=== PATIENT | male | born 1950 | race Caucasian/White ===

== ENCOUNTER 2017-07-08 12:11 | Emergency (ER) | payer OTHER, BC ==
[~2017-07-08] VITALS: Ht 157.5 cm; Wt 70.5 kg
[~2017-07-08 12:11] MED LIST: ASPI81TA28 PO; ATEN-173 PO; TAMS0.4C38 PO
[2017-07-08 12:24] VITALS: TEMP 37; Ht 157.5 cm; Wt 70.5 kg
[2017-07-08] MEDS ORDERED: PRAV10TA39 PO (12:34)
[2017-07-08] MEDS ORDERED: CRG125 PO (12:34)
[2017-07-08] MEDS ORDERED: KETOROLAC TROMETHAMINE 30 MG/ML VIAL IV STA (12:43)
[2017-07-08] MEDS ORDERED: ONDANSETRON INJ 2 MG/ML 2 ML VIAL IV STA (12:43)
--- NOTE | 2017-07-08 12:52 | EMERGENCY ROOM VISIT NOTE ---
History Report prepared by Adrienne: Zahra Hilliard Under the Supervision of: Dr. Jorden Lance M.D. First contact with patient: 12:41 Chief Complaint: KIDNEY STONE Stated Complaint: KIDNEY STONES History of Present Illness The patient is a 66 year old male who presents to the Emergency Room with complaints of a kidney stone. He states that his symptoms began three and a half hours ago. The patient rates the pain at a 9/10. He reports having a pain in his right back which radiated to his right testicle. He also reports having nausea, sweating, and the chills. The patient reports a history of kidney stones and states that his symptoms today feel similar. He states that he had a 5 mm stone and had to have a lithotripsy to pass it. Source of History: patient Onset: three and a half hours ago Position: other (kidney) Symptom Intensity: rated at a 9/10 Quality: other (stone) Associated Symptoms: + chills, + diaphoresis, + nausea, + back pain (right) Note: additional symptom: pain in right testicle Review of Systems See HPI for pertinent positives & negatives. A total of 10 systems reviewed and were otherwise negative. Past Medical & Surgical Medical Problems: (1) Heart disease (2) Hypertension Family History Cancer FH: HTN (hypertension) Hypertension Kidney disease Social History Smoking Status: Never Smoker Marital Status: Housing Status: lives with significant other Current/Historical Medications Scheduled Aspirin (Aspirin Ec), 81 MG PO QAM Carvedilol (Carvedilol), 12.5 MG PO BID Pravastatin Sodium (Pravastatin Sodium), 10 MG PO QPM Tamsulosin Hcl (Flomax), 0.4 MG PO DAILY Scheduled PRN Oxycodone Ir (Roxicodone Ir), 1-2 TAB PO Q4H PRN for Pain Allergies Coded Allergies: Penicillins (Verified Allergy, Unknown, RASH, 07/08/17) Physical Exam Vital Signs Date Time Temp Pulse Resp B/P (MAP) Pulse Ox O2 Delivery O2 Flow Rate FiO2 07/08/17 14:52 87 16 128/66 99 07/08/17 13:51 83 17 130/80 96 Room Air 07/08/17 12:24 37.0 83 20 152/92 96 Room Air Physical Exam GENERAL: Patient is in no acute distress. HEENT: No acute trauma, normocephalic atraumatic, mucous membranes moist, no nasal congestion, no scleral icterus. NECK: No stridor, no adenopathy, no meningismus, trachea is midline. LUNGS: Clear to auscultation bilaterally, no wheeze, no rhonchi, breath sounds equal. HEART: Without murmurs gallops or rubs, regular rate and rhythm. ABDOMEN: Soft, nontender, bowel sounds positive, no hernias, no peritonitis. EXTREMITIES: No cyanosis or edema, full range of motion of all the joints without pain or difficulty, no signs for acute trauma. NEUROLOGIC: Oriented x 3, no acute motor or sensory deficits, no focal weakness. BACK: No flank discomfort with percussion. SKIN: No rash, no jaundice, no diaphoresis. Medical Decision & Procedures ER Provider Diagnostic Interpretation: Radiology results as stated below per my review and radiologist interpretation: CT SCAN OF THE ABDOMEN AND PELVIS WITHOUT CONTRAST CLINICAL HISTORY: Right-sided flank pain and hematuria COMPARISON STUDY: No previous studies for comparison. TECHNIQUE: CT scan of the abdomen and pelvis was performed from the lung bases to the proximal femurs. Images are reviewed in the axial, sagittal, and coronal planes. IV contrast was not administered for this examination. A dose lowering technique was utilized adhering to the principles of ALARA. CT DOSE: 669.91 mGy.cm FINDINGS: Lower chest: There are lingular airspace opacities, suspicious for a pneumonitis. There are basilar atelectatic changes. Liver: The unenhanced liver is normal in size, contour, and attenuation. There is no intrahepatic biliary ductal dilatation. Gallbladder: Unremarkable. Spleen: The spleen is of normal in size. There are 2 tiny too small to characterize hypodensities. Pancreas: Unremarkable. Adrenal glands: Unremarkable. Kidneys: There is bilateral perinephric stranding right greater than left. There is a 5 mm hyperdense focus within the upper pole of the right kidney. It is unclear whether this represents a faintly opaque calculus or cortical calcification area There is a 4 mm proximal right ureteral calculus. No bladder calculi are visualized. No left ureteral calculi are visualized. Bowel: There are no transition zones indicate bowel obstruction. There is no evidence of acute appendicitis. There is no evidence of acute diverticulitis. Peritoneum: There is no intraperitoneal free air or abdominal ascites. There are bilateral fat-containing inguinal hernias. Vasculature: The abdominal aorta is normal in course and caliber. Adenopathy: None. Pelvic viscera: The bladder, and pelvic viscera are unremarkable. Skeletal structures: No destructive osseous lesions are seen. IMPRESSION: 1. 4 mm proximal right ureteral calculus with mild secondary obstructive changes 2. No evidence of bowel obstruction. No evidence of free air. Electronically signed by: Wilman Win M.D. 07/08/2017 1:53 PM Dictated Date/Time: 07/08/2017 1:48 PM Laboratory Results 07/08/17 12:55 07/08/17 12:55 Test 07/08/17 12:55 07/08/17 13:00 Red Blood Count 4.56 M/uL (4.7-6.1) Mean Corpuscular Volume 93.6 fL (80-100) Mean Corpuscular Hemoglobin 32.9 pg (25-34) Mean Corpuscular Hemoglobin Concent 35.1 g/dl (32-36) RDW Standard Deviation 45.0 fL (36.4-46.3) RDW Coefficient of Variation 13.2 % (11.5-14.5) Mean Platelet Volume 10.1 fL (7.4-10.4) Anion Gap 5.0 mmol/L (3-11) Est Creatinine Clear Calc Drug Dose 50.0 ml/min Estimated GFR () 70.2 Estimated GFR (Non- 60.5 BUN/Creatinine Ratio 9.2 (10-20) Calcium Level 8.7 mg/dl (8.5-10.1) Total Bilirubin 0.7 mg/dl (0.2-1) Aspartate Amino Transf (AST/SGOT) 19 U/L (15-37) Alanine Aminotransferase (ALT/SGPT) 17 U/L (12-78) Alkaline Phosphatase 56 U/L (45-117) Total Protein 7.7 gm/dl (6.4-8.2) Albumin 3.8 gm/dl (3.4-5.0) Globulin 3.9 gm/dl (2.5-4.0) Albumin/Globulin Ratio 1.0 (0.9-2) Urine Color YELLOW Urine Appearance CLOUDY (CLEAR) Urine pH 5.0 (4.5-7.5) Urine Specific [place] 1.013 (1.000-1.030) Urine Protein NEG (NEG) Urine Glucose (UA) NEG (NEG) Urine Ketones NEG (NEG) Urine Occult Blood 3+ (NEG) Urine Nitrite NEG (NEG) Urine Bilirubin NEG (NEG) Urine Urobilinogen NEG (NEG) Urine Leukocyte Esterase NEG (NEG) Urine WBC (Auto) 1-5 /hpf (0-5) Urine RBC (Auto) 10-30 /hpf (0-4) Urine Hyaline Casts (Auto) 1-5 /lpf (0-5) Urine Epithelial Cells (Auto) 0-5 /lpf (0-5) Urine Bacteria (Auto) NEG (NEG) Laboratory results reviewed by me. Medications Administered Medications (Trade) Dose Ordered Sig/Hina Route Start Time Stop Time Status Last Admin Dose Admin Ondansetron HCl (Zofran Inj) 4 mg NOW STAT IV 07/08/17 12:43 07/08/17 12:46 DC 07/08/17 12:55 4 MG Ketorolac Tromethamine (Toradol Inj) 30 mg NOW STAT IV 07/08/17 12:43 07/08/17 12:46 DC 07/08/17 12:56 30 MG Tamsulosin HCl (Flomax Cap) 0.4 mg NOW ONCE PO 07/08/17 14:30 07/08/17 14:31 DC 07/08/17 14:52 0.4 MG ED Course 1240: The patient was evaluated in room B10. A complete history and physical exam was performed. 1243: Ordered Toradol Inj 30 mg IV, Zofran Inj 4 mg IV. 1430: Ordered Flomax Cap 0.4 mg PO, Oxycodone HCl 1 homepack PO. 1430: Reevaluated the patient. Discussed results and discharge instructions: He verbalized understanding and agreement. The patient is ready for discharge. Medical Decision The patient is a 66 year old male who presents to the ED with complaints of a kidney stone. Differential diagnoses considered include renal colic, hydronephrosis, UTI, renal failure, musculoskeletal pain, and hernia. There is no leukocytosis or concerning anemia. No significant electrolyte abnormality, kidney failure or hepatitis. Urinalysis shows hematuria consistent with a possible kidney stone. No signs of urinary infection. Abdominal and pelvis CT shows a proximal right ureteral stone with hydronephrosis. The patient received IV Toradol, IV Zofran and oral Flomax. He has been resting comfortably. I think he can be discharged to try to pass this stone naturally. He will strain all his urine, oxycodone for severe pain, Flomax to help pass the stone. He will follow with urology and return here if worsening. [place] Drug Monitoring Program Search Results: patient reviewed within database, no issues identified Medication Reconcilliation Current Medication List: was personally reviewed by me Blood Pressure Screening Patient's blood pressure: Elevated blood pressure Blood pressure disposition: Elevated BP felt to be situational Impression Primary Impression: Renal colic Scribe Attestation The scribe's documentation has been prepared under my direction and personally reviewed by me in its entirety. I confirm that the note above accurately reflects all work, treatment, procedures, and medical decision making performed by me. Departure Information Dispostion Home / Self-Care Prescriptions Oxycodone Ir (Roxicodone Ir) 5 Mg Tab 1-2 TAB PO Q4H Y for Pain, #10 TAB Prov: Jorden Lance M.D. 07/08/17 Tamsulosin Hcl (FLOMAX) 0.4 Mg Cap 0.4 MG PO DAILY, #10 CAP Prov: Jorden Lance M.D. 07/08/17 Referrals Jayesh Kirk M.D. (PCP) Magdalena Major M.D. Forms HOME CARE DOCUMENTATION FORM, IMPORTANT VISIT INFORMATION Patient Instructions My [facility] Additional Instructions fluids rest strain all the urine flomax daily to help pass the stone oxy ir 1-2 tab every 4 hours for severe pain may use motrin or advil for pain as well see urology next week return for fever, uncontrolled pain, vomiting
[2017-07-08 13:13] LABS: URINE APPEARANCE CLOUDY (CLEAR); URINE BILIRUBIN NEG (NEG); URINE COLOR YELLOW; URINE EPITHELIAL CELL AUTO 0-5 /lpf (0-5); URINE NITRITE NEG (NEG); URINE SPECIFIC GRAVITY 1.013 (1.000-1.030); UROBILINOGEN NEG (NEG); ZZUR CULT IF INDIC CLEAN CATCH NO
[2017-07-08 13:14] LABS: MANUAL MICROSCOPIC REQUIRED? NO; REVIEW REQ? NO
[2017-07-08 13:15] LABS: HEMATOCRIT 42.7 % (42-52); MEAN CELL VOLUME 93.6 fL (80-100); MEAN CORPUSCULAR HEMOGLOBIN 32.9 pg (25-34); MEAN CORPUSCULAR HGB CONC 35.1 g/dl (32-36); MEAN PLATELET VOLUME 10.1 fL (7.4-10.4); PLATELET COUNT 206 K/uL (130-400); RED BLOOD COUNT 4.56 M/uL (4.7-6.1); WHITE BLOOD COUNT 8.39 K/uL (4.8-10.8)
[2017-07-08 13:25] LABS: BUN/CREATININE RATIO 9.2 (10-20); CALCIUM 8.7 mg/dl (8.5-10.1); CREATININE 1.22 mg/dl (0.60-1.40); POTASSIUM 3.5 mmol/L (3.5-5.1)
--- NOTE | 2017-07-08 13:54 | DIAGNOSTIC IMAGING REPORT ---
CT SCAN OF THE ABDOMEN AND PELVIS WITHOUT CONTRAST CLINICAL HISTORY: Right-sided flank pain and hematuria COMPARISON STUDY: No previous studies for comparison. TECHNIQUE: CT scan of the abdomen and pelvis was performed from the lung bases to the proximal femurs. Images are reviewed in the axial, sagittal, and coronal planes. IV contrast was not administered for this examination. A dose lowering technique was utilized adhering to the principles of ALARA. CT DOSE: 669.91 mGy.cm FINDINGS: Lower chest: There are lingular airspace opacities, suspicious for a pneumonitis. There are basilar atelectatic changes. Liver: The unenhanced liver is normal in size, contour, and attenuation. There is no intrahepatic biliary ductal dilatation. Gallbladder: Unremarkable. Spleen: The spleen is of normal in size. There are 2 tiny too small to characterize hypodensities. Pancreas: Unremarkable. Adrenal glands: Unremarkable. Kidneys: There is bilateral perinephric stranding right greater than left. There is a 5 mm hyperdense focus within the upper pole of the right kidney. It is unclear whether this represents a faintly opaque calculus or cortical calcification area There is a 4 mm proximal right ureteral calculus. No bladder calculi are visualized. No left ureteral calculi are visualized. Bowel: There are no transition zones indicate bowel obstruction. There is no evidence of acute appendicitis. There is no evidence of acute diverticulitis. Peritoneum: There is no intraperitoneal free air or abdominal ascites. There are bilateral fat-containing inguinal hernias. Vasculature: The abdominal aorta is normal in course and caliber. Adenopathy: None. Pelvic viscera: The bladder, and pelvic viscera are unremarkable. Skeletal structures: No destructive osseous lesions are seen. IMPRESSION: 1. 4 mm proximal right ureteral calculus with mild secondary obstructive changes 2. No evidence of bowel obstruction. No evidence of free air. Electronically signed by: Wilman Win M.D. 07/08/2017 1:53 PM Dictated Date/Time: 07/08/2017 1:48 PM
[2017-07-08] MEDS ORDERED: OXYCODONE IR HOME PACK PO ONE (14:30)
[2017-07-08] MEDS ORDERED: TAMSULOSIN HCL 0.4 MG CAP PO ONE (14:30)
[2017-07-08] MEDS ORDERED: TAMS0.4C38 PO (14:33)
[2017-07-08] MEDS ORDERED: OXYC1TAB3 PO (14:33)
[2017-07-08 14:52] VITALS: BP 128/66; PULSE 87; O2SAT 99
[2017-07-19] MEDS ORDERED: LISI-729 PO (14:47)
== END 2017-07-08 14:59 | disposition home or self-care (01) ==
LOC: C.EDB 12:13
DX: N23 Unspecified renal colic (principal); N20.1 Calculus of ureter; N13.30 Unspecified hydronephrosis; Z87.442 Personal history of urinary calculi; Z79.82 Long term (current) use of aspirin; Z82.49 Family history of ischemic heart disease and other diseases of the circulatory system

== ENCOUNTER → 2017-07-13 | Outpatient (CLI) | payer OTHER, BC ==
[~2017-07-13] MED LIST changes: -ATEN-173 PO; +CRG125 PO; +LISI-729 PO; +OXYC-90 PO; +PRAV10TA39 PO
--- NOTE | 2017-07-13 15:35 | DIAGNOSTIC IMAGING REPORT ---
CHEST 2 VIEWS ROUTINE CLINICAL HISTORY: 66 years-old Male presenting with N20.0 [id number]. TECHNIQUE: PA and lateral views of the chest were obtained. COMPARISON: None. FINDINGS: Median sternotomy wires and mediastinal surgical clips noted. Atherosclerosis of aortic arch. Cardiac silhouette mildly enlarged. Bandlike opacity in the left midlung, which may be centered at the hilum. No pleural effusion or pneumothorax. Osseous structures normal. Upper abdomen normal. IMPRESSION: 1. Left midlung opacity may in the [place] from the hilum, possibly vascular, atelectasis, or scarring. No other evidence of acute cardiopulmonary disease. Electronically signed by: Govind Burger M.D. 07/13/2017 3:34 PM Dictated Date/Time: 07/13/2017 3:32 PM
== END | disposition home or self-care (01) ==
LOC: C.RAD 15:08
PROVIDERS: ATTEND Urology
DX: N20.0 Calculus of kidney (principal)

== ENCOUNTER → 2017-08-01 | Outpatient (CLI) | payer OTHER, BC ==
[~2017-08-01] MED LIST changes: -OXYC-90 PO; -TAMS0.4C38 PO
--- NOTE | 2017-08-01 15:28 | DIAGNOSTIC IMAGING REPORT ---
KUB CLINICAL HISTORY: N20.0 Nephrolithiasis COMPARISON STUDY: 06/09/2015 FINDINGS: There is no pathologic bowel dilatation. There is a chronic deformity of the symphysis pubis and right ischio pubic ring. No urinary tract calculi are visualized on conventional radiographic imaging. IMPRESSION: No urinary tract calculi are visualized. Electronically signed by: Wilman Win M.D. 08/01/2017 3:26 PM Dictated Date/Time: 08/01/2017 3:25 PM
== END | disposition home or self-care (01) ==
LOC: C.RAD 14:52
PROVIDERS: ATTEND Urology
DX: N20.0 Calculus of kidney (principal)

== ENCOUNTER → 2017-08-03 | Day surgery (SDC) | payer OTHER, BC ==
[2017-07-19 14:47] VITALS: Ht 157.5 cm; Wt 67.3 kg
[~2017-08-03] VITALS: Ht 157.5 cm; Wt 67.3 kg
[~2017-08-03] MED LIST changes: +CIPROFLOXACIN / D5W 400 MG IV SCH; +CIPROFLOXACIN 400MG / D5W IV SCH; +LACTATED RINGER'S 1000ML 1,000 ML IV SCH
== END | disposition home or self-care (01) ==
LOC: EDSTATUS 07:45 → C.PAT 15:47
PROVIDERS: ATTEND Urology
DX: N20.0 Calculus of kidney (principal)

== ENCOUNTER → 2017-11-14 | Outpatient (CLI) | payer OTHER, BC ==
[~2017-11-14] MED LIST changes: -CIPROFLOXACIN / D5W 400 MG IV SCH; -CIPROFLOXACIN 400MG / D5W IV SCH; -LACTATED RINGER'S 1000ML 1,000 ML IV SCH
== END | disposition home or self-care (01) ==
LOC: C.PATHSPEC 16:37
PROVIDERS: ATTEND Dermatology
DX: L82.0 Inflamed seborrheic keratosis (principal)